=== PATIENT | male | born 1975 | race Caucasian/White ===

== ENCOUNTER 2022-07-12 20:55 | Emergency (ER) | payer OTHER ==
[2022-07-12 21:44] LABS: HEMOGLOBIN 18.6 gm/dl (14.0-17.5); RED BLOOD COUNT 5.42 M/UL (4.20-5.50); WHITE BLOOD COUNT 3.7 K/UL (4.5-11.0)
[2022-07-12 22:13] LABS: BUN/CREATININE RATIO 10 (0-10)
[2022-07-12] MEDS ORDERED: AUGMENTIN XR 11 EACH PO (22:48)
== END 2022-07-12 23:55 | disposition home or self-care (01) ==
LOC: ER1 20:55
PROVIDERS: Family Medicine
DX: S02.2XXA Fracture of nasal bones, initial encounter for closed fracture (principal); F10.129 Alcohol abuse with intoxication, unspecified; Y90.8 Blood alcohol level of 240 mg/100 ml or more; X58.XXXA Exposure to other specified factors, initial encounter
CPT/HCPCS: 70450; 70486; 71045; 80053; 85025; 85610; 93005; 99284; G0480